=== PATIENT | female | born 1995 | race Caucasian/White ===

== ENCOUNTER → 2017-05-03 | Outpatient (CLI) | payer BC ==
--- NOTE | 2017-05-03 10:54 | DIAGNOSTIC IMAGING REPORT ---
(BARIUM SWALLOW) ESOPHAGUS CLINICAL HISTORY: HOARSENESS OF VOICE, gastroesophageal reflux COMPARISON STUDY: None. FLUOROSCOPY TIME: 0.9 minutes. 20 images submitted. FINDINGS: The patient swallowed barium without difficulty. The contours of the hypopharynx are within normal limits. The esophagus is normal in course, caliber, and motility. Moderate gastroesophageal reflux. No hiatus hernia. The barium tablet passed without difficulty. IMPRESSION: Moderate gastroesophageal reflux. Electronically signed by: Tee Grullon M.D. 05/03/2017 10:53 AM Dictated Date/Time: 05/03/2017 10:51 AM
== END | disposition home or self-care (01) ==
LOC: C.RAD 10:10
PROVIDERS: ATTEND Internal Medicine
DX: R49.0 Dysphonia (principal); K21.9 Gastro-esophageal reflux disease without esophagitis